=== PATIENT | male | born 1965 | race Caucasian/White ===

== ENCOUNTER → 2019-07-30 | Outpatient (CLI) | payer OTHER ==
--- NOTE | 2019-07-30 12:43 | RAD ---
EXAM: Left shoulder, 3 views; right knee, 2 views. HISTORY: Pain. COMPARISON: None. FINDINGS: Left shoulder: 3 views of the left shoulder obtained. There is moderate marginal humeral head spurring and glenoid remodeling. There is minimal degenerative subchondral sclerosis and subchondral cyst formation involving the acromioclavicular joint. There is a prominent left shoulder joint loose body. Right knee: 2 views of the right knee are obtained. There is no fracture, dislocation or subluxation. There is no joint effusion. IMPRESSION: 1. 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 2. No acute osseous finding. Electronically signed by: Rianna Allen MD (07/30/2019 12:40 PM) [email or web address]
== END | disposition home or self-care (01) ==
LOC: RAD 09:35
PROVIDERS: ATTEND Surgery
DX: M19.012 Primary osteoarthritis, left shoulder (principal); M24.012 Loose body in left shoulder; M25.561 Pain in right knee
CPT/HCPCS: 73030; 73560

== ENCOUNTER → 2021-09-20 | Outpatient (CLI) | payer OTHER ==
--- NOTE | 2021-09-20 17:10 | RAD ---
EXAMINATION: XR SHOULDER_RIGHT 2+ VIEWS CLINICAL HISTORY: CHRONIC RIGHT SHOULDER AND KNEE PAIN TECHNIQUE: XR SHOULDER_RIGHT 2+ VIEWS COMPARISON: 10/26/2020 FINDINGS/ IMPRESSION: New defect in the greater tuberosity with possible subacute to chronic fracture/avulsion fragment pro jected over the surgical neck of the humerus on external rotation view, correlate clinically. No evid ence of acute fracture. Glenohumeral and acromioclavicular degenerative changes, similar to prior jessy dy. Electronically signed by: Camron Adam DO (09/20/2021 5:07 PM) [id number]
--- NOTE | 2021-09-20 17:12 | RAD ---
EXAMINATION: XR KNEE_RT 1-2 VIEWS CLINICAL HISTORY: RIGHT KNEE PAIN TECHNIQUE: XR KNEE_RT 1-2 VIEWS COMPARISON: None FINDINGS/ IMPRESSION: Mild medial and lateral compartment narrowing. Joint space and the patellofemoral compartment maintai joby. No acute fracture. No joint effusion. Electronically signed by: Camron Adam DO (09/20/2021 5:09 PM) [id number]
== END ==
LOC: RAD 14:11
PROVIDERS: ATTEND Family Medicine
DX: M19.011 Primary osteoarthritis, right shoulder (principal); M25.861 Other specified joint disorders, right knee
CPT/HCPCS: 73030; 73560